=== PATIENT | female | born 1990 | race Caucasian/White ===

== ENCOUNTER 2018-01-12 17:46 | Inpatient (IN) | payer BC ==
[2018-01-12] MEDS ORDERED: Nalbuphine 10 MG/1 ML Vial IVPUSH PRN (19:19)
[2018-01-12] MEDS ORDERED: Lidocaine 1% 50 ML MDV INJECT PRN (19:19)
[2018-01-12] MEDS ORDERED: Misoprostol 200 MCG Tab PO PRN (19:19)
[2018-01-12] MEDS ORDERED: Tranexamic Acid 1,000 MG in Sodium Chloride 0.9% 100 ML IV PRN (19:19)
[2018-01-12] MEDS ORDERED: Sodium Chloride 0.9% 2.5 ML Syringe FLUSH PRN (19:19)
[2018-01-12] MEDS ORDERED: Carboprost Tromethamine 250 MCG/1 ML Amp IM PRN (19:19)
[2018-01-12] MEDS ORDERED: Water For Irrigation,Sterile 1,000 ML Container IRR PRN (19:19)
[2018-01-12] MEDS ORDERED: Butorphanol 1 MG/ML SDV IVPUSH PRN (19:19)
[2018-01-12] MEDS ORDERED: Sodium Chloride 0.9% 10 ML Syringe FLUSH PRN (19:19)
[2018-01-12] MEDS ORDERED: Methylergonovine 0.2 MG/1 ML Amp IM PRN (19:19)
[2018-01-12] MEDS ORDERED: Terbutaline 1 MG/ML SDV SUBCUT PRN (19:21)
[2018-01-12] MEDS ORDERED: Misoprostol 25 MCG (1/4 of 100 MCG) Tab VAG SCH (19:30)
[2018-01-12] MEDS ORDERED: Oxytocin/0.9 % Sodium Chloride 30 UNIT/500 ML BAG IV SCH (19:30)
[2018-01-12] MEDS: Misoprostol 25 MCG (1/4 of 100 MCG) Tab VAG PRN (20:01)
[2018-01-13] MEDS: Misoprostol 25 MCG (1/4 of 100 MCG) Tab VAG PRN (02:15)
[2018-01-13] MEDS ORDERED: Oxytocin/0.9 % Sodium Chloride 30 UNIT/500 ML BAG IV SCH (04:00)
[2018-01-13] MEDS: Lactated Ringers 1,000 ML IV SCH ×2 (04:14→07:34)
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
[2018-01-13] MEDS ORDERED: Methylergonovine 0.2 MG Tab PO PRN (11:08)
[2018-01-13] MEDS ORDERED: Ibuprofen 400 MG Tab PO PRN (11:08)
[2018-01-13] MEDS ORDERED: Acetaminophen 500 MG Tab PO PRN (11:08)
[2018-01-13] MEDS ORDERED: Bisacodyl 10 MG Supp RECTAL PRN (11:08)
[2018-01-13] MEDS ORDERED: Witch Hazel Medicated Pads 40/Jar TOP PRN (11:08)
[2018-01-13] MEDS ORDERED: Benzocaine/Menthol 20%-0.5% Spray 78 GM Cannister TOP PRN (11:08)
[2018-01-13] MEDS ORDERED: Lanolin 100% Cream 7 GM Tube TOP PRN (11:08)
[2018-01-13] MEDS ORDERED: oxyCODONE 5 MG Tab PO PRN (11:08)
--- NOTE | 2018-01-13 11:40 | OR ---
SURGEON: Christie Jacob M.D. DATE OF PROCEDURE: 01/13/2018 PREOPERATIVE DIAGNOSIS: Thirty-nine weeks intrauterine , multiparity requests induction. POSTOPERATIVE DIAGNOSIS: Thirty-nine weeks intrauterine , multiparity requests induction. PROCEDURE: Cytotec and Pitocin induction of labor, term spontaneous vaginal delivery. B2B SALES EXECUTIVE: LINDA Miles. ANESTHESIA: Epidural. ESTIMATED BLOOD LOSS: 200 mL. FINDINGS: Live-born male, score 9 and 9. Weight is pending at the time of dictation. Placenta spontaneous, Schultze intact with 3 vessels. Perineum intact. BRIEF HISTORY: This is a 27-year-old female. She is G2, P1. She presents at 39 weeks' gestation for induction of labor at her request. She was initially 1 cm, fairly thick, she received 2 doses of Cytotec and with Cytotec she did proceed into active labor. When she was 4-5 cm dilated, she received an epidural for pain control. Artificial rupture of membranes was performed. Soon thereafter, she progressed to complete. She had category 1 heart tones to out labor. She did have some vaginal bleeding during labor, which was felt to be cervical in origin and she progressed to complete. DESCRIPTION OF PROCEDURE: With the patient in dorsal lithotomy position, the patient pushed over a 15- minute time period to a 5+ station, at which time the head was delivered spontaneously and atraumatically over the perineum with support. With subsequent delivery of the infant's shoulders and body without any difficulty, the infant was handed to the mother in the presence of the nurse attending delivery. After the cord had ceased to pulsate, it was doubly clamped and cut and the infant was a liveborn male, score was 9 and 9. Weight is pending at the time of dictation. A section of cord was saved for cord blood sampling. Pitocin was initiated after delivery of the to assist with delivery of the placenta, which was delivered spontaneously. Schultze intact with 3 vessels. Upon inspection of the pelvis and perineum, there were no periurethral, vaginal sidewall, cervical, rectal, or perineal lacerations. EBL was less than 200 mL. Final sponge, needle, and instrument count were correct. There were no known complications. and mother are in LDRP in good condition. OSCAR / RAMON /[id number]
[2018-01-13] MEDS: Ibuprofen 800 MG Tab PO PRN ×2 (12:40→20:19)
[2018-01-13] MEDS: Docusate Sodium 100 MG Cap PO PRN (20:19)
[2018-01-13] MEDS: Acetaminophen 500 MG Tab PO PRN (20:26)
[2018-01-14] MEDS: Acetaminophen 500 MG Tab PO PRN (04:29)
[2018-01-14] MEDS: Ibuprofen 800 MG Tab PO PRN ×2 (04:29→12:20)
[2018-01-14] MEDS: Docusate Sodium 100 MG Cap PO PRN (07:59)
--- NOTE | 2018-01-14 08:29 | PCM.PNPP ---
- General Info Functional Status: Reports: Pain Controlled, Tolerating Diet, Ambulating, Urinating - Review of Systems General: Reports: No Symptoms HEENT: Reports: No Symptoms Pulmonary: Reports: No Symptoms Cardiovascular: Reports: No Symptoms Gastrointestinal: Reports: No Symptoms Genitourinary: Reports: No Symptoms Musculoskeletal: Reports: No Symptoms Skin: Reports: No Symptoms Neurological: Reports: No Symptoms Psychiatric: Reports: No Symptoms - Patient Data Vital Signs - Most Recent: Last Vital Signs Temp 36.8 C 01/14/18 07:45 Pulse 67 01/14/18 07:45 Resp 18 01/14/18 07:45 BP 122/67 01/14/18 07:45 Pulse Ox 97 01/14/18 07:45 Weight - Most Recent: 85.275 kg Lab Results - Last 24 Hours: Laboratory Results - last 24 hr 01/13/18 01/13/18 01/14/18 Range/Units 10:41 10:41 06:04 Hgb 9.9 L (12.0-16.0) g/dL Hct 31.1 L (36.0-46.0) % Cord ABG pH 7.267 (7.18-7.38) Cord ABG Base Excess -4 (-10--2) Cord VBG pH 7.380 (7.25-7.45) Cord VBG Base Excess -3 (-10--2) Med Orders - Current: Current Medications Acetaminophen (Tylenol Extra Strength) 500 mg PO Q4H PRN PRN Reason: Pain Last Admin: 01/14/18 04:29 Dose: 500 mg Acetaminophen (Tylenol Extra Strength) 1,000 mg PO Q4H PRN PRN Reason: Pain Benzocaine/Menthol (Dermoplast Pain Relief 20%-0.5% [place]) 78 gm TOP ASDIRECTED PRN PRN Reason: Perineal Comfort Measure Bisacodyl (Dulcolax) 10 mg RECTAL .ONCE PRN PRN Reason: Constipation Butorphanol Tartrate (Stadol) 1 mg IVPUSH Q1H PRN PRN Reason: Pain Carboprost Tromethamine (Hemabate Ds) 250 mcg IM ASDIRECTED PRN PRN Reason: Post Hemorrhage Docusate Sodium (Colace) 100 mg PO BID PRN PRN Reason: Constipation Last Admin: 01/14/18 07:59 Dose: 100 mg Emollient Ointment (Lansinoh Hpa) 0 gm TOP ASDIRECTED PRN PRN Reason: Sore Nipples Last Admin: 01/14/18 07:59 Dose: 1 tube Lactated Ringer's (Ringers, Lactated) 1,000 mls @ 150 mls/hr IV ASDIRECTED ALEX Last Admin: 01/13/18 07:34 Dose: 150 mls/hr Oxytocin/Sodium Chloride (Oxytocin 30 Unit/500 Ml-Ns) 30 unit in 500 mls @ 500 mls/hr IV TITRATE ALEX Last Admin: 01/13/18 10:43 Dose: 500 mls/hr Tranexamic Acid 1,000 mg/ (Sodium Chloride) 110 mls @ 660 mls/hr IV ONETIME PRN PRN Reason: Bleeding Oxytocin/Sodium Chloride (Oxytocin 30 Unit/500 Ml-Ns) 30 unit in 500 mls @ 2 mls/hr IV TITRATE [facility]; Protocol Ibuprofen (Motrin) 400 mg PO Q4H PRN PRN Reason: Pain Ibuprofen (Motrin) 800 mg PO Q6H PRN PRN Reason: Pain Last Admin: 01/14/18 04:29 Dose: 800 mg Lidocaine HCl (Xylocaine 1%) 50 ml INJECT .ONCE PRN PRN Reason: Laceration repair Methylergonovine Maleate (Methergine) 0.2 mg IM ASDIRECTED PRN PRN Reason: Post Hemorrhage Methylergonovine Maleate (Methergine) 0.2 mg PO ASDIRECTED PRN PRN Reason: excessive vaginal bleeding Misoprostol (Cytotec) 200 mcg PO .ONCE PRN PRN Reason: Post Hemorrhage Misoprostol (Cytotec) 25 mcg VAG .ONCE ALEX Misoprostol (Cytotec) 25 mcg VAG Q6H PRN PRN Reason: Cervical Ripening Last Admin: 01/13/18 02:15 Dose: 25 mcg Nalbuphine HCl (Nubain) 10 mg IVPUSH Q1H PRN PRN Reason: Pain (severe 7-10) Oxycodone HCl (Oxycodone) 5 mg PO Q2H PRN PRN Reason: Pain Sodium Chloride (Saline Flush) 10 ml FLUSH ASDIRECTED PRN PRN Reason: Keep Vein Open Sodium Chloride (Saline Flush) 2.5 ml FLUSH ASDIRECTED PRN PRN Reason: Keep Vein Open Sterile Water (Sterile Water For Irrigation) 1,000 ml IRR ASDIRECTED PRN PRN Reason: delivery Terbutaline Sulfate (Brethine) 0.25 mg SUBCUT ASDIRECTED PRN PRN Reason: Tacysystole Witch Melanie (Tucks) 1 pad TOP ASDIRECTED PRN PRN Reason: comfort care Discontinued Medications Fentanyl/Bupivacaine HCl (Xwqppeyz-[id number]-Am 2 Mcg/Ml-0.125%) Confirm Administered Dose 100 mls @ as directed EP .STK-MED ONE Stop: 01/13/18 07:33 - Infant Interaction Infant Disposition, : Edna in Room with Family Interaction: Holding Infant Feeding: Breastfed Infant; Nursed Well Support Person: - Recovery Exam Fundal Tone: Firm Fundal Level: At Umbilicus Fundal Placement: Midline Lochia Amount: Scant, Small Lochia Color: Rubra/Red Perineum Description: Intact, Minimal Bruising/Swelling Episiotomy/Laceration: None Bladder Status: Voiding Urinary Elimination: Voided - Exam General: Alert, Oriented HEENT: Pupils Equal Neck: Supple Lungs: Normal Respiratory Effort GI/Abdominal Exam: Soft, Non-Tender, No Distention, No Mass, Pelvis Stable Extremities: Normal Inspection, Non-Tender, No Pedal Edema Skin: Warm, Dry, Intact Neurological: No New Focal Deficit Psy/Mental Status: Alert, Normal Affect, Normal Mood - Problem List & Annotations (1) Vaginal delivery SNOMED Code(s): 482301690 Code(s): O80 - ENCOUNTER FOR FULL-TERM UNCOMPLICATED DELIVERY Status: Acute Current Visit: Yes - Problem List Review Problem List Initiated/Reviewed/Updated: Yes - My Orders Last 24 Hours: My Active Orders 01/13/18 11:08 May Shower [RC] ASDIRECTED Up ad Hiral [RC] ASDIRECTED Acetaminophen [Tylenol Extra Strength] 1,000 mg PO Q4H PRN Acetaminophen [Tylenol Extra Strength] 500 mg PO Q4H PRN Benzocaine/Menthol [Dermoplast Pain Relief 20%-0.5% [place]] 78 gm TOP ASDIRECTED PRN Bisacodyl [Dulcolax] 10 mg RECTAL .ONCE PRN Docusate Sodium [Colace] 100 mg PO BID PRN Ibuprofen [Motrin] 400 mg PO Q4H PRN Ibuprofen [Motrin] 800 mg PO Q6H PRN Lanolin [Lansinoh HPA] See Dose Instructions TOP ASDIRECTED PRN Methylergonovine [Methergine] 0.2 mg PO ASDIRECTED PRN Witch Melanie [Tucks] 1 pad TOP ASDIRECTED PRN oxyCODONE 5 mg PO Q2H PRN Assess Lochia [WOMSER] Per Unit Routine Assess Uterine Involution [WOMSER] Per Unit Routine Perineal Care [OM.PC] Per Unit Routine Peripheral IV Discontinue [OM.PC] Routine 01/13/18 Lunch Regular Diet [DIET] 01/14/18 08:23 Ready for Discharge [RC] PER UNIT ROUTINE - Assessment Assessment:: PPD#1 after , stable, minimal lochia, breastfeedign is going well. She would like to go home today. - Plan Plan:: Dismiss to home today. Discharge instructions reviewed, continue vitamins while .
--- NOTE | 2018-01-14 09:29 | PCM48HPAN ---
Post Anesthesia Note - EVALUATION WITHIN 48HRS OF ANESTHETIC Vital Signs in Normal Range: Yes Patient Participated in Evaluation: Yes Respiratory Function Stable: Yes Airway Patent: Yes Cardiovascular Function Stable: Yes Hydration Status Stable: Yes Pain Control Satisfactory: Yes Nausea and Vomiting Control Satisfactory: Yes Mental Status Recovered: Yes Resp Rate: 18
== END 2018-01-14 13:55 | disposition home or self-care (01) | DRG 560 ==
LOC: MW.OBCHECK 17:46 → MW.OB 17:48 → MW.OBCHECK 19:18 → MW.OB 19:19 → OBSVTOIN 01-13 10:41
PROVIDERS: ADMIT Obstetrics & Gynecology; ATTEND Obstetrics & Gynecology
PROC: 10E0XZZ Delivery of Products of Conception, External Approach (ICD-10-PCS; principal; 2018-01-13)
PROC: 10907ZC Drainage of Amniotic Fluid, Therapeutic from Products of Conception, Via Natural or Artificial Opening (ICD-10-PCS; 2018-01-13)
PROC: 3E0P7VZ Introduction of Hormone into Female Reproductive, Via Natural or Artificial Opening (ICD-10-PCS; 2018-01-13)
PROC: 3E033VJ Introduction of Other Hormone into Peripheral Vein, Percutaneous Approach (ICD-10-PCS; 2018-01-13)
DX: O80 Encounter for full-term uncomplicated delivery (principal); Z3A.39 39 weeks gestation of pregnancy; Z37.0 Single live birth
CPT/HCPCS: 36415; 51702; 59025; 59409; 82803; 85014; 85018; 85027; 86850; 86900; 86901; A9270-GY; J2590; J7120

== ENCOUNTER 2019-06-20 09:24 | Emergency (ER) | payer OTHER, BC ==
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
[2019-06-20] MEDS ORDERED: Sodium Chloride 0.9% 500 ML IRR SCH (10:00)
== END 2019-06-20 11:10 | disposition home or self-care (01) ==
LOC: MW.ED 09:24
DX: T45.8X1A Poisoning by other primarily systemic and hematological agents, accidental (unintentional), initial encounter (principal); H10.212 Acute toxic conjunctivitis, left eye
CPT/HCPCS: 99283; J7040